=== PATIENT | female | born 1965 | race Caucasian/White ===

== ENCOUNTER 2024-04-05 14:34 | Outpatient (CLI) | payer BC | END 2024-04-05 14:35 | disposition home or self-care (01) | LOC: BICMAMMO 14:34 | PROVIDERS: ATTEND Family Medicine | DX: Z78.0 Asymptomatic menopausal state (principal); M85.851 Other specified disorders of bone density and structure, right thigh; M85.852 Other specified disorders of bone density and structure, left thigh | CPT/HCPCS: 77080 ==